=== PATIENT | male | born 1960 | race African-American/Black ===

== ENCOUNTER 2025-01-02 10:53 | Emergency (ER) | payer SELFPAY ==
[~2025-01-02] VITALS: Ht 175.3 cm; Wt 83.5 kg
[2025-01-02 11:41] LABS: APPEARANCE, URINE CLEAR (CLEAR); BACTERIA, URINE AUTO NEGATIVE (NEGATIVE); BASO # 0.0 10^3/uL (0.0-0.2); BASO % 0.9 % (0.0-1.0); BILIRUBIN, URINE AUTO NEGATIVE (NEGATIVE); BLOOD, URINE BLOOD NEGATIVE (NEGATIVE); EOS # 0.1 10^3/uL (0.0-0.5); EOS % 2.6 % (0.0-3.0); GLUCOSE, URINE (UA) AUTO NEGATIVE (NEGATIVE); KETONE, URINE AUTO NEGATIVE (NEGATIVE); LEUKOCYTE ESTERASE, URINE AUTO NEGATIVE (NEGATIVE); LYMPH # 1.6 10^3/uL (1.5-5.0); LYMPH % 34.0 % (24.0-44.0); MONO # 0.4 10^3/uL (0.0-0.8); MONO % 7.7 % (2.0-8.0); MUCUS, URINE MODERATE (NEGATIVE); NEUTROPHILS # 2.5 10^3/uL (1.5-8.5); NEUTROPHILS % 54.6 % (36.0-66.0); NITRITE, URINE AUTO NEGATIVE (NEGATIVE); PLATELET COUNT, AUTOMATED 237 10^3/uL (150-450); PROTEIN, URINE AUTO NEGATIVE (NEGATIVE); RBC, URINE AUTO 0 /HPF (0-3); SPECIFIC GRAVITY URINE AUTO 1.021 (1.002-1.035); SQUAMOUS EPITHELIAL CELL UR AU 0 /HPF (0-6); UROBILINOGEN, URINE AUTO 0.2 mg/dL (0.0-2.0); WBC, URINE AUTO 1 /HPF (0-3)
[2025-01-02 12:15] LABS: ALT/SGPT 17 U/L (7.0-40); AST/SGOT 20 U/L (<34); CALCIUM LEVEL 10.0 MG/DL (8.3-10.6); CARBON DIOXIDE LEVEL 29 MMOL/L (20-31); CHLORIDE LEVEL 100 MMOL/L (98-107); CREATININE FOR GFR 0.90 MG/DL (0.70-1.30); GLOMERULAR FILTRATION RATE > 90.0 (>49); POTASSIUM SERUM 3.9 MMOL/L (3.5-5.1); SODIUM LEVEL 141 MMOL/L (136-145)
[2025-01-02 12:39] VITALS: TEMP 97.3
[2025-01-02 14:30] VITALS: O2SAT 98
[2025-01-02] MEDS ORDERED: PILL CUTTER 1 EACH XX PRN (14:40)
[2025-01-02] MEDS ORDERED: CHLORTHALIDONE 12.5 MG PER 1/2 TABLET PO ONE (14:40)
[2025-01-02] MEDS ORDERED: CHLO125TA PO (14:44)
[2025-01-02 14:50] VITALS: BP 178/90
[2025-01-02] MEDS: CHLORTHALIDONE 25 MG TAB PO ONE (14:50)
[2025-01-02 15:30] VITALS: BP 180/100
== END 2025-01-02 15:49 | disposition home or self-care (01) ==
LOC: M ED 10:53
DX: I10 Essential (primary) hypertension (principal); R00.0 Tachycardia, unspecified; Z79.899 Other long term (current) drug therapy